=== PATIENT | male | born 2000 | race Caucasian/White ===

== ENCOUNTER 2023-06-17 03:37 | Emergency (ER) | payer SELFPAY ==
[2023-06-17] MEDS ORDERED: Sodium Chloride 0.9% 10 ML Syringe FLUSH PRN (03:41)
[2023-06-17] MEDS ORDERED: Sodium Chloride 0.9% 1,000 ML IV SCH (03:45)
[2023-06-17 04:07] LABS: BASOPHILS ABSOLUTE AUTO 0.1 K/mm3 (0.0-0.2); BASOPHILS PERCENT AUTO 0.8 % (0.0-1.0); EOSINOPHILS PERCENT AUTO 0.3 % (0.0-6.0); HEMATOCRIT 44.8 % (42.0-52.0); HEMOGLOBIN 15.3 gm/dl (14.0-18.0); IMMATURE GRAN ABSOLUTE AUTO 0.04 K/mm3 (0.00-0.05); IMMATURE GRAN PERCENT AUTO 0.4 % (0.0-0.4); LYMPHOCYTES ABSOLUTE AUTO 1.5 K/mm3 (1.0-4.8); LYMPHOCYTES PERCENT AUTO 16.4 % (24.0-44.0); MEAN CORPUSCULAR HEMOGLOBIN 30.1 pg (28.0-32.0); MEAN CORPUSCULAR HGB CONC 34.2 g/dl (32.0-36.0); MEAN CORPUSCULAR VOLUME 88.2 fl (83.0-99.0); MEAN PLATELET VOLUME 8.6 fl (9.4-12.4); MONOCYTES ABSOLUTE AUTO 0.5 K/mm3 (0.0-0.8); MONOCYTES PERCENT AUTO 5.1 % (0.0-8.0); NEUTROPHILS ABSOLUTE AUTO 7.1 K/mm3 (1.8-7.7); PLATELET COUNT,PLT 290 K/mm3 (150-400); RED BLOOD CELL COUNT 5.08 M/mm3 (4.52-5.90); WHITE BLOOD CELL COUNT,WBC 9.26 K/mm3 (3.9-11.3)
[2023-06-17 04:09] LABS: BARBITURATE SCREEN,URINE NEGATIVE (CUTOFF=200); BENZODIAZEPINES SCREEN,URINE NEGATIVE (CUTOFF=150); BUPRENORPHINE SCREEN,URINE NEGATIVE (CUTOFF=10); METHADONE SCREEN, URINE NEGATIVE (CUT0FF=200); METHAMPHETAMINES SCREEN, URINE NEGATIVE (CUTOFF=500); OXYCODONE SCREEN,URINE NEGATIVE (CUT0FF=100); PROPOXYPHENE SCREEN,URINE NEGATIVE (CUTOFF=300); THC SCREEN,URINE 20 NG/ML NEGATIVE (CUTOFF=50)
[2023-06-17 04:12] LABS: AMPHETAMINES SCREEN, URINE PRESUMPTIVE POSITIVE (CUTOFF=500)
[2023-06-17 04:30] LABS: ALBUMIN 4.3 g/dl (3.4-5.0); BILIRUBIN TOTAL 0.1 mg/dL (0.2-1.0); BUN/CREATININE RATIO 9.1 (14-18); CALCIUM 8.6 mg/dL (8.5-10.1); CREATININE 1.1 mg/dL (0.7-1.3); EST CRCL DRUG DOSING (CG) 114.09 mL/min; ETHANOL BLOOD MEDICAL 0.22 gm% (0.00); PROTEIN TOTAL,TP 8.5 g/dl (6.4-8.2)
== END 2023-06-17 09:04 | disposition home or self-care (01) ==
LOC: JD.ED 03:37
DX: T43.641A Poisoning by ecstasy, accidental (unintentional), initial encounter (principal); F10.920 Alcohol use, unspecified with intoxication, uncomplicated
CPT/HCPCS: 36415; 70450; 80053; 80143; 80179; 80306; 80307; 85025; 93005; 96360; 96361; 99285; J3490; J7030